=== PATIENT | male | born 1935 | race African-American/Black ===

== ENCOUNTER 2018-02-10 11:12 | Emergency (ER) | payer MEDICARE, OTHER ==
[~2018-02-10] VITALS: Ht 182.9 cm; Wt 73.0 kg
[~2018-02-10 11:12] MED LIST: ATOR-2 PO; FLUT16SP15 NS; LEVO50TA8 PO; METO25TA6 PO; [UNRECOGNIZED DRUG - REMARK]
[2018-02-10] MEDS ORDERED: SODIUM CHLORIDE 0.9% 1,000 ML IV ONE ×2 (11:22→13:15)
[2018-02-10 11:53] LABS: HEMATOCRIT. 34.9 % (42.0-52.0); HEMOGLOBIN. 11.8 g/dL (14.0-18.0); MEAN CORPUSCULAR HEMOGLOBIN 29.9 pg (28.0-32.0); MEAN CORPUSCULAR VOLUME 88.5 fL (80.0-94.0); MEAN PLATELET VOLUME 7.8 fl (7.4-10.4); PLATELET 323 x1000/uL (130-400); RED BLOOD CELL COUNT 3.94 mill/uL (4.7-6.1); RED CELL DISTRIBUTION WIDTH 14.9 % (11.6-14.6)
[2018-02-10 12:00] LABS: CHLORIDE 95 mEq/L (98-107)
[2018-02-10 12:01] LABS: INR 1.3; PROTHROMBIN TIME 13.8 sec (9.4-11.6)
[2018-02-10 12:21] LABS: PLATELET ESTIMATE NORMAL
[2018-02-10 14:50] VITALS: BP 102/69
== END 2018-02-10 15:52 | disposition short-term general hospital (02) ==
LOC: ER 11:36
DX: E86.0 Dehydration (principal); R53.1 Weakness; R19.7 Diarrhea, unspecified; E78.00 Pure hypercholesterolemia, unspecified; I10 Essential (primary) hypertension; J98.11 Atelectasis
CPT/HCPCS: 36415; 71045; 80053; 84484; 85025; 85610; 93005; 96360; 96361; 99285; J7030

== ENCOUNTER 2019-12-11 06:49 | Inpatient (IN) | payer MEDICARE, OTHER ==
[~2019-12-11] VITALS: Ht 167.6 cm; Wt 68.2 kg
[~2019-12-11 06:49] MED LIST changes: +DABI150C PO; +FURO20TA4 MT; -[UNRECOGNIZED DRUG - REMARK]
[2019-12-11 07:23] LABS: CHLORIDE 103 mEq/L (98-107)
[2019-12-11 07:30] LABS: EOSINOPHILS % 1.5 % (0.0-5.0); HEMATOCRIT. 29.3 % (42.0-52.0); HEMOGLOBIN. 10.2 g/dL (14.0-18.0); LYMPHOCYTES % 31.6 % (20.0-50.0); MEAN CORPUSCULAR HEMOGLOBIN 35.7 pg (28.0-32.0); MEAN CORPUSCULAR VOLUME 102.7 fL (80.0-94.0); MEAN PLATELET VOLUME 8.4 fl (7.4-10.4); MONOCYTES % 8.2 % (2.0-8.0); NEUTROPHILS % 57.7 % (40.0-76.0); PLATELET 282 x1000/uL (130-400); RED BLOOD CELL COUNT 2.85 mill/uL (4.7-6.1); RED CELL DISTRIBUTION WIDTH 18.1 % (11.6-14.6)
[2019-12-11 07:47] LABS: BG BASE EXCESS -3.6 mmol/L (-2.0-2.0); BG BILEVEL POS AIRWAY PRESSURE 15/5; BG CARBOXYHEMOGLOBIN 0.3 % (0.5-1.5); BG DEOXYHEMOGLOBIN 1.3 % (0.0-5.0); BG FRACTION INSPIRED OXYGEN 100; BG HCO3 ACT 21.8 mmol/L (22.0-26.0); BG METHEMOGLOBIN 0.3 % (0.0-1.5); BG OXYGEN SATURATION 98.7 % (92.0-98.5); BG OXYHEMOGLOBIN 98.1 % (94.0-97.0); BG PCO2 40.8 mmHg (35.0-45.0); BG PH 7.345 (7.350-7.450); BG PO2 159.3 mmHg (75.0-100.0); BG SAMPLE SITE RIGHT RADIAL; BG VENT MODE MASK - BIPAP; BG VENT RATE 16 set
[2019-12-11] MEDS ORDERED: FUROSEMIDE 40MG/4ML VIAL IVP ONE (08:30)
[2019-12-11] MEDS: ENALAPRIL 2.5MG/2ML VIAL 2ML IV ONE ×2 (09:25→10:42)
[2019-12-11] MEDS ORDERED: NITROGLYCERIN 0.2MG/HR PATCH TOP NR ×2 (13:45→14:00)
[2019-12-11] MEDS ORDERED: NITROGLYCERIN 0.4MG/HR PATCH TOP NR (13:45)
[2019-12-11] MEDS ORDERED: CARVEDILOL 3.125 MG TABLET PO NR (13:45)
[2019-12-11] MEDS ORDERED: LIDOCAINE HCL/PF 1% 2ML VIAL ONE (16:02)
[2019-12-11] MEDS ORDERED: DEXTROSE 50% WATER 50ML SYRINGE IV ONE ×2 (18:02→18:15)
[2019-12-11] MEDS: ALBUMIN HUMAN 25GM/100ML (25%) IV SCH (18:54)
[2019-12-11] MEDS ORDERED: ONDANSETRON HCL 4MG/2ML INJ IV PRN (20:30)
[2019-12-11] MEDS ORDERED: HYDROCODONE/ACETAMINOPHEN 5/325MG TABLET PO PRN (20:30)
[2019-12-11] MEDS ORDERED: DIPHENHYDRAMINE 50MG/ML VIAL IV PRN (20:30)
[2019-12-11] MEDS ORDERED: NA PHOS,M-B/NA PHOS,DI-BA ENEMA 118ML PR PRN (20:30)
[2019-12-11 23:43] LABS: CREATINE KINASE MB FRACTION 2.2 ng/mL (0.5-3.6)
[2019-12-11] MEDS ORDERED: DEXTROSE 50% WATER 50ML SYRINGE IV PRN (23:45)
[2019-12-11] MEDS ORDERED: DABIGATRAN ETEXILATE MESYLATE 75 MG PO SCH (23:45)
[2019-12-11] MEDS ORDERED: MEDICATION NOT ON FORMULARY EA (Atorvastatin Calcium 80 MG) PO SCH (23:45)
[2019-12-12] VITALS (13 sets, daily range): BP systolic 88–116; BP diastolic 44–61
[2019-12-12] MEDS: ALBUMIN HUMAN 25GM/100ML (25%) IV SCH ×2 (02:13→02:30)
[2019-12-12 07:07] LABS: BASOPHILS % 0.5 % (0.0-2.0); EOSINOPHILS % 2.4 % (0.0-5.0); HEMATOCRIT. 26.2 % (42.0-52.0); HEMOGLOBIN. 8.9 g/dL (14.0-18.0); LYMPHOCYTES % 11.9 % (20.0-50.0); MEAN CORPUSCULAR HEMOGLOBIN 32.9 pg (28.0-32.0); MEAN CORPUSCULAR VOLUME 96.8 fL (80.0-94.0); MEAN PLATELET VOLUME 8.7 fl (7.4-10.4); MONOCYTES % 8.5 % (2.0-8.0); NEUTROPHILS % 76.7 % (40.0-76.0); PLATELET 235 x1000/uL (130-400); RED CELL DISTRIBUTION WIDTH 17.8 % (11.6-14.6)
[2019-12-12 07:13] LABS: CHLORIDE 102 mEq/L (98-107)
[2019-12-12 07:21] LABS: CREATINE KINASE 127 IU/L (39-308); HDL CHOLESTEROL 49 mg/dL (40-59)
[2019-12-12 07:22] LABS: LDL CHOLESTEROL 50 mg/dL (5-100)
[2019-12-12 07:24] LABS: CREATINE KINASE MB FRACTION 2.1 ng/mL (0.5-3.6)
[2019-12-12] MEDS ORDERED: LEVOTHYROXINE SODIUM 50MCG TABLET PO SCH (07:30)
[2019-12-12] MEDS: INSULIN LISPRO 100 UNITS/ML SUBCUT SCH ×4 (08:00→20:25)
[2019-12-12] MEDS: BLOOD SUGAR DIAGNOSTIC STRIP TEST SCH ×4 (08:14→20:25)
[2019-12-12] MEDS ORDERED: POTASSIUM CHLORIDE 20MEQ TABLET SR PO NR (08:30)
[2019-12-12] MEDS: CARVEDILOL 3.125 MG TABLET PO SCH ×2 (08:57→20:18)
[2019-12-12] MEDS ORDERED: FUROSEMIDE 40MG/4ML VIAL IV SCH (09:00)
[2019-12-12] MEDS ORDERED: NITROGLYCERIN 0.4MG/HR PATCH TOP SCH (09:00)
[2019-12-12] MEDS ORDERED: ALBUTEROL (0.083%) 2.5MG/3ML NEB HHN SCH (18:00)
[2019-12-12 18:07] LABS: BG BASE EXCESS 3.2 mmol/L (-2.0-2.0); BG CARBOXYHEMOGLOBIN 0.3 % (0.5-1.5); BG DEOXYHEMOGLOBIN 3.6 % (0.0-5.0); BG HCO3 ACT 26.7 mmol/L (22.0-26.0); BG METHEMOGLOBIN 0.4 % (0.0-1.5); BG OXYGEN SATURATION 96.4 % (92.0-98.5); BG OXYHEMOGLOBIN 95.7 % (94.0-97.0); BG PCO2 36.2 mmHg (35.0-45.0); BG PH 7.486 (7.350-7.450); BG PO2 87.8 mmHg (75.0-100.0); BG SAMPLE SITE RIGHT RADIAL; BG TOTAL HEMOGLOBIN 9.3 g/dL (12.0-18.0); BG VENT MODE NASAL CANNULA
[2019-12-12 19:26] LABS: PHOSPHORUS 2.8 mg/dL (2.5-4.9)
[2019-12-12 19:59] LABS: CLARITY URINE CLEAR (CLEAR); COLOR URINE YELLOW (YELLOW); KETONES URINE NEGATIVE (NEGATIVE); LEUKOCYTE ESTERASE URINE NEGATIVE (NEGATIVE); NITRITE URINE NEGATIVE (NEGATIVE); OCCULT BLOOD URINE NEGATIVE (NEGATIVE); PROTEIN URINE TRACE (NEGATIVE); SPECIFIC GRAVITY URINE 1.009 (1.005-1.030); UROBILINOGEN URINE 0.2 E.U./dL (0.2-1.0)
[2019-12-12 20:42] LABS: PHENCYCLIDINE URINE SCREEN NEGATIVE (NEGATIVE)
[2019-12-12 20:43] LABS: *AMPHETAMINES SCREEN URINE NEGATIVE (NEGATIVE); *BARBITURATES SCREEN URINE NEGATIVE (NEGATIVE); *BENZODIAZEPINES SCREEN URINE NEGATIVE (NEGATIVE); *COCAINE SCREEN URINE NEGATIVE (NEGATIVE); CANNABINOID URINE SCREEN NEGATIVE (NEGATIVE); METHADONE URINE SCREEN NEGATIVE (NEGATIVE); OPIATES URINE SCREEN NEGATIVE (NEGATIVE)
[2019-12-12] MEDS ORDERED: ATORVASTATIN CALCIUM 40MG TABLET PO SCH (21:00)
== END 2019-12-12 23:48 | disposition short-term general hospital (02) | DRG 189 ==
LOC: ER 06:49 → 5EST 10:28 → ENRESERV 21:41 → 5EST 12-12 00:39
PROVIDERS: ADMIT Family Medicine; ATTEND Family Medicine
PROC: 5A09357 Assistance with Respiratory Ventilation, Less than 24 Consecutive Hours, Continuous Positive Airway Pressure (ICD-10-PCS; principal; 2019-12-11)
DX: J96.00 Acute respiratory failure, unspecified whether with hypoxia or hypercapnia (principal); I50.23 Acute on chronic systolic (congestive) heart failure; I13.0 Hypertensive heart and chronic kidney disease with heart failure and stage 1 through stage 4 chronic kidney disease, or unspecified chronic kidney disease; E44.1 Mild protein-calorie malnutrition; N17.9 Acute kidney failure, unspecified; D64.9 Anemia, unspecified; E03.9 Hypothyroidism, unspecified; E11.65 Type 2 diabetes mellitus with hyperglycemia; E78.00 Pure hypercholesterolemia, unspecified; E78.5 Hyperlipidemia, unspecified; I25.118 Atherosclerotic heart disease of native coronary artery with other forms of angina pectoris; N18.2 Chronic kidney disease, stage 2 (mild); E11.22 Type 2 diabetes mellitus with diabetic chronic kidney disease; I27.20 Pulmonary hypertension, unspecified; I34.0 Nonrheumatic mitral (valve) insufficiency; J44.9 Chronic obstructive pulmonary disease, unspecified; Z68.24 Body mass index [BMI] 24.0-24.9, adult; Z87.891 Personal history of nicotine dependence; Z95.1 Presence of aortocoronary bypass graft
CPT/HCPCS: 36415; 36600; 71045; 80053; 80061; 80305; 81003; 82375; 82550; 82553; 82805; 82962; 83735; 83880; 84100; 84484; 85025; 87804; 93005; 93306; 94640; 94660; 96374; 99285; J1940; J3490; P9047

== ENCOUNTER 2020-12-14 21:36 | Emergency (ER) | payer OTHER, MEDICARE ==
[~2020-12-14] VITALS: Ht 175.3 cm; Wt 73.0 kg
[2020-12-14 22:42] LABS: EOSINOPHILS % 1.6 % (0.0-5.0); HEMATOCRIT. 27.7 % (42.0-52.0); HEMOGLOBIN. 9.1 g/dL (14.0-18.0); LYMPHOCYTES % 17.3 % (20.0-50.0); MEAN CORPUSCULAR HEMOGLOBIN 29.6 pg (28.0-32.0); MEAN CORPUSCULAR VOLUME 89.7 fL (80.0-94.0); MEAN PLATELET VOLUME 7.8 fl (7.4-10.4); MONOCYTES % 8.5 % (2.0-8.0); NEUTROPHILS % 71.6 % (40.0-76.0); PLATELET 279 x1000/uL (130-400); RED BLOOD CELL COUNT 3.09 mill/uL (4.7-6.1); RED CELL DISTRIBUTION WIDTH 17.5 % (11.6-14.6)
[2020-12-14 22:46] LABS: CHLORIDE 101 mEq/L (98-107)
[2020-12-15] MEDS ORDERED: MORPHINE SULFATE 4 MG/ML CPJ (NOT FOR IM USE) IV ONE (02:00)
[2020-12-15 08:05] VITALS: BP 133/67
== END 2020-12-15 10:31 | disposition short-term general hospital (02) ==
LOC: ER 21:36 → CANBEDREQ 12-15 02:23 → ER 12-15 10:31
DX: S72.091A Other fracture of head and neck of right femur, initial encounter for closed fracture (principal); U07.1 COVID-19; R55 Syncope and collapse; I95.9 Hypotension, unspecified; R00.1 Bradycardia, unspecified; I50.9 Heart failure, unspecified; Z95.1 Presence of aortocoronary bypass graft; W01.0XXA Fall on same level from slipping, tripping and stumbling without subsequent striking against object, initial encounter; Y93.89 Activity, other specified; Y92.018 Other place in single-family (private) house as the place of occurrence of the external cause
CPT/HCPCS: 36415; 70450; 71045; 73502; 80053; 83880; 84484; 85025; 85730; 87426; 93005; 96374; 99285; J2270